=== PATIENT | male | born 1950 | race African-American/Black ===

== ENCOUNTER 2017-11-11 09:39 | Emergency (ER) | payer MEDICARE ==
[~2017-11-11] VITALS: Ht 170.2 cm; Wt 100.0 kg
[~2017-11-11 09:39] MED LIST: BL ADULT ASA81 MG OR; BP MEDICATION; CEPHALEXIN500 MG PO; CRESTOR5 MG OR; ERY-TAB333 MG OR; LISINOPRIL10 MG PO; LOPID600 MG OR; LORTAB 5 OR; NAPROSYN500 MG OR; PRAVASTATIN10 MG PO; TESSALON200 MG OR; TOPROL XL50 MG PO
[2017-11-11 10:15] LABS: HEMATOCRIT 46.5 % (39.0-50.0); HEMOGLOBIN 15.3 g/dl (14.0-18.0); IMMATURE GRANULOCYTES 0.3 % (0.0-1.0); MEAN CELL VOLUME 90.5 fL CALC (80.0-100.0); MEAN CORPUSCULAR HGB 29.8 pG CALC (26.0-32.0); MEAN CORPUSCULAR HGB CONC 32.9 g/L CALC (32.0-36.0); NEUT# 4.76 thou/uL (1.82-7.42); RED BLOOD COUNT 5.14 mill/uL (4.70-6.10); RED CELL DISTRI WIDTH 13.4 % (11.5-15.5)
[2017-11-11 10:44] LABS: ALBUMIN 3.8 g/dL (3.2-5.0); ALKALINE PHOSPHATASE 76 u/l (38-126); ANION GAP 13 (6-22 (CALC)); BILIRUBIN, TOTAL 0.6 mg/dL (0.0-1.4); BUN 11 mg/dL (8-23); BUN/CREATININE RATIO 12 (12-20 (CALC)); CALCIUM 9.6 mg/dL (8.4-10.2); CARBON DIOXIDE 28 mmol/l (22-30); CHLORIDE 105 mmol/l (95-108); GFR > 60 ML/MIN (>=60 (CALC)); GFR FOR AFR.AMER. > 60 ML/MIN (>=60 (CALC)); GLUCOSE 114 mg/dL (82-115); POTASSIUM 3.9 mmol/l (3.5-5.1); SGOT/AST 19 u/l (19-48); SGPT/ALT 25 u/l (11-66); SODIUM 143 mmol/l (137-146); TOTAL PROTEIN 6.8 g/dL (6.3-8.2)
[2017-11-11 12:08] LABS: URINE BILIRUBIN - DIPSTICK NEGATIVE (NEGATIVE); URINE BLOOD DIPSTICK NEGATIVE (NEGATIVE); URINE COLOR YELLOW; URINE GLUCOSE - DIPSTICK NEGATIVE (NEGATIVE); URINE KETONE NEGATIVE (NEGATIVE); URINE LEUK ESTERASE NEGATIVE (NEGATIVE); URINE NITRITE - DIPSTICK NEGATIVE (Negative); URINE PH 6.5 (4.5-8.0); URINE PROTEIN - DIPSTICK NEGATIVE (NEG-TRACE); URINE UROBILINOGEN - DIPSTICK 0.2 E.U./dL (0.2)
[2017-11-11 12:52] LABS: URINE CLARITY CLEAR
[2017-11-11 14:00] VITALS: BP 179/83
== END 2017-11-11 14:00 | disposition home or self-care (01) ==
LOC: ED 09:39
PROVIDERS: Emergency Medicine
DX: R11.2 Nausea with vomiting, unspecified (principal); R42 Dizziness and giddiness; R19.7 Diarrhea, unspecified; B34.9 Viral infection, unspecified

== ENCOUNTER 2017-12-17 01:41 | Observation (INO) | payer MEDICARE ==
[2017-12-17] VITALS (9 sets, daily range): BP systolic 137–183; BP diastolic 79–103
[~2017-12-17] VITALS: Ht 170.2 cm; Wt 80.4 kg
--- NOTE | 2017-12-17 01:43 | NUR ---
PATIENT BROUGHT IMMEDIATELY BACK TO TREATMENT AREA VIA WHEELCHAIR. PATIENT UNDRESSED INTO A GOWN. PLACED ON MONITOR. TRIAGE COMPLETED AT BEDSIDE. PATIENT AWAITIGN MD CARLISLE.
[2017-12-17] MEDS ORDERED: ULTRAM50 MG PO (02:04)
[2017-12-17] MEDS ORDERED: BREO ELLIPTA1 INH IN (02:04)
--- NOTE | 2017-12-17 02:06 | NUR ---
IV STARTED, LABS DRAWN, CONNECTED TO MONITOR, MD AT BEDSIDE, FAMILY AT BEDSIDE. Pt tolerated procedures well.
[2017-12-17 02:40] LABS: HEMATOCRIT 45.2 % (39.0-50.0); HEMOGLOBIN 15.1 g/dl (14.0-18.0); IMMATURE GRANULOCYTES 1.1 % (0.0-1.0); MEAN CELL VOLUME 90.4 fL CALC (80.0-100.0); MEAN CORPUSCULAR HGB 30.2 pG CALC (26.0-32.0); MEAN CORPUSCULAR HGB CONC 33.4 g/L CALC (32.0-36.0); NEUT# 4.66 thou/uL (1.82-7.42); RED CELL DISTRI WIDTH 13.8 % (11.5-15.5)
[2017-12-17 02:48] LABS: ALBUMIN 3.8 g/dL (3.2-5.0); ALKALINE PHOSPHATASE 88 u/l (38-126); ANION GAP 16 (6-22 (CALC)); BILIRUBIN, TOTAL 0.4 mg/dL (0.0-1.4); BUN 9 mg/dL (8-23); BUN/CREATININE RATIO 11 (12-20 (CALC)); CARBON DIOXIDE 27 mmol/l (22-30); CHLORIDE 104 mmol/l (95-108); CREATININE 0.9 mg/dL (0.7-1.3); GFR > 60 ML/MIN (>=60 (CALC)); GFR FOR AFR.AMER. > 60 ML/MIN (>=60 (CALC)); POTASSIUM 3.7 mmol/l (3.5-5.1); SGOT/AST 20 u/l (19-48); SGPT/ALT 27 u/l (11-66); SODIUM 143 mmol/l (137-146); TOTAL PROTEIN 6.6 g/dL (6.3-8.2)
[2017-12-17 03:00] LABS: MYOGLOBIN 18 ng/mL (0 - 121)
[2017-12-17 03:25] LABS: URINE BILIRUBIN - DIPSTICK NEGATIVE (NEGATIVE); URINE BLOOD DIPSTICK NEGATIVE (NEGATIVE); URINE COLOR YELLOW; URINE GLUCOSE - DIPSTICK NEGATIVE (NEGATIVE); URINE KETONE NEGATIVE (NEGATIVE); URINE LEUK ESTERASE NEGATIVE (NEGATIVE); URINE NITRITE - DIPSTICK NEGATIVE (Negative); URINE PROTEIN - DIPSTICK NEGATIVE (NEG-TRACE); URINE SPECIFIC GRAVITY <=1.005; URINE UROBILINOGEN - DIPSTICK 0.2 E.U./dL (0.2)
--- NOTE | 2017-12-17 03:26 | NUR ---
RESTING QUIETLY AWAITING DISPOSITION.
[2017-12-17 03:37] LABS: BARBITURATES NEGATIVE (NEGATIVE); COCAINE NEGATIVE (NEGATIVE); METHADONE NEGATIVE (NEGATIVE); OXCYCODONE NEGATIVE (NEGATIVE); TETRAHYDROCANNABIONOL NEGATIVE (NEGATIVE); TRICYLIC ANTIDEPRESSANTS NEGATIVE (NEGATIVE)
[2017-12-17 03:38] LABS: URINE CLARITY CLEAR
--- NOTE | 2017-12-17 05:43 | NUR ---
Admission Note Report Given to: COLTON ROQUE Transported by: Wheelchair X Stretcher Transported with: X Nurse Transporter X Patent IV [employer] Resource Officer
--- NOTE | 2017-12-17 05:45 | NUR ---
PT TRANSFERRED TO FLOOR VIA WC ACCOMPANIED BY ER STAFF AND SPOUSE;PT AMBULATED WITH A STEADY GAIT TO STANDING SCALE AND BEDSIDE;WT AND VS OBTAINED;PT ORIENTED TO ROOM AND CALL LIGHT SYSTEM;PT REPORTS HAVING A "BURNING SENSATION THROUGHOUT BODY" BUT DENIES ANY PAIN;PT REPORTS RELIEF SINCE ADMISSION;ASSESSMENT COMPLETED;RESPIRATIONS EVEN AND UNLABORED ON RA,CLEAR LUNG SOUNDS;ABDOMEN SOFT UPON PALPATION;WEAK PEDAL PULSES;PERRLA;#20G TO LAC FLUSHED AND PATENT;TELE MONITOR IN PLACE;LAST BM 12/17/17;SKIN INTAC;ALL SAFETY PRECAUTIONS REINFORCED;URINAL AT BEDSIDE;PT ENCOURAGED TO CALL FOR ASSISTANCE IF NEEDED;CALL LIGHT IN REACH;WILL CONTINUE TO MONITOR
--- NOTE | 2017-12-17 06:15 | NUR ---
MESSAGE LEFT FOR THAT PT HAS ARRIVED TO FLOOR
--- NOTE | 2017-12-17 07:14 | NUR ---
REPORT RECEIVED FROM NIKA ROQUE. PT SITTING ON SIDE OF BED. DENIES PAIN. NO DIZZINESS. AT BEDSIDE. FALL PRECAUTIONS REINFORCED. REPORTING OF CONCERNS ENCOURAGED. PLAN OF CARE DISCUSSED. CALL LIGHT REVIEWED AND IN REACH. PT STATES UNDERSTANDING.
--- NOTE | 2017-12-17 07:20 | NUR ---
ORTHOSTATIC BLOOD PRESSURE OBTAINED SUPINE: B/P-159/90; PULSE-65 SITTING: B/P-173/92; PULSE-68 STANDING: B/P-183/103; PULSE-70 ALL B/P TAKEN RIGHT ARM, PULSE OX PT HAS NO COMPLAINTS OF DIZZINESS OR PAIN
--- NOTE | 2017-12-17 08:30 | NUR ---
PT ALERT AND ORIENTED X3, INDEPENDENT IN ADLS. FACE SYMMETRICAL, SPEECH CLEAR, PUPILS EQUAL AND REACTIVE TO LIGHT. HEART SOUNDS STRONG AND REGULAR RHYTHM. LUNGS CLEAR, NO SIGNS OF RESP DISTRESS, 02 SAT 97% ON ROOM AIR, RESP EVEN AND UNLABORED. ABD SOFT, NON-DISTENDED, BOWEL SOUNDS X4. STRONG RADIAL AND PEDAL PULSES, BRISK CAP REFILLS. #20 GAUGE IV LAC, IV PATENT, FREE FROM REDNESS AND EDEMA. NO EDEMA LOWER EXTREMITIES. SKIN INTACT, WARM/DRY, NO REDNESS OR BREAKDOWN OBSERVED. PT HAS NO COMPLAINTS OF DIZZINESS OR PAIN AT THIS TIME, REMINDED TO CALL FOR HELP IF NEEDED, BED IN LOWEST POSITION, CALL LIGHT WITHIN REACH.
--- NOTE | 2017-12-17 09:00 | NUR ---
DR. REBOLLAR AT BEDSIDE.
[2017-12-17] MEDS ORDERED: ELIQUIS5 MG PO (09:55)
--- NOTE | 2017-12-17 10:41 | NUR ---
PT LEFT FLOOR VIA WHEELCHAIR TO US.
--- NOTE | 2017-12-17 13:00 | NUR ---
PT DENIES COMPLAINTS AT THIS TIME. CALL LIGHT WITHIN REACH.
--- NOTE | 2017-12-17 19:10 | NUR ---
REPORT RECEIVED FROM COLTON YEBOAH;PT RESTING AT BEDSIDE WITH PRESENT;INTRODUCED SELF TO PT AND POC DISCUSSED;TELE MONITOR IN PLACE;PT DENIES ANY PAIN OR DISCOMFORTS;ENCOURAGED TO CALL FOR ASSISTANCE IF NEEDED;CALL LIGHT IN REACH;WILL CONTINUE TO MONITOR
--- NOTE | 2017-12-17 20:20 | NUR ---
PT RESTING IN SEMI FOWLERS POSITION WITH VISITOR AT BEDSIDE;A&O X3;ASSESSMENT COMPLETED;STRONG PEDAL PULSES;RESPIRATIONS EVEN AND UNLABORED ON RA WITH CLEAR LUNG SOUNDS;ABDOMEN SOFT ON PALPATION AND ACTIVE IN ALL FOUR QUADS;TELE MONITOR IN PLACE;#20G TO LAC FLUSHED AND PATENT,SITE APPEARS HEALTHY AND FREE FROM EDEMA;PT DENIES ANY DIZZINESS OR PAIN;ENCOURAGED TO AMBULATE [place];FRESH WATER PROVIDED PER REQUEST;PT ENCOURAGED TO CALL FOR ASSISTANCE IF NEEDED;FALL PRECAUTIONS IN PLACE AND CALL LIGHT IN REACH;WILL CONTINUE TO MONICOT
--- NOTE | 2017-12-17 23:45 | NUR ---
PT APPEARS TO BE SLEEPING WITH EYES CLOSED;NO S/S OF DISTRESS NOTED;RESPIRATIONS EVEN AND UNLABORED ON RA;TELE MONITOR IN PLACE;FALL PRECAUTIONS;CALL LIGHT WITHIN REACH;WILL CONTINUE TO MONITOR
--- NOTE | 2017-12-18 00:30 | NUR ---
PT AMBULATED ALL 3 HALLWAYS WITH A STEADY GAIT
[2017-12-18 04:00] VITALS: BP 128/75
--- NOTE | 2017-12-18 04:00 | NUR ---
PT APPEARS TO BE SLEEPING IN SUPINE POSITIION;NO S/S OF DISTRESS NOTED;RESPIRATIONS EVEN AND UNLABORED ON RA;TELE MONITOR IN PLACE;FALL PRECAUTIONS;BED IN THE LOWEST POSITION WITH CALL LIGHT IN REACH;WILL CONTINUE TO MONITOR
[2017-12-18 06:10] LABS: HEMATOCRIT 45.6 % (39.0-50.0); HEMOGLOBIN 14.9 g/dl (14.0-18.0); IMMATURE GRANULOCYTES 0.8 % (0.0-1.0); MEAN CELL VOLUME 90.8 fL CALC (80.0-100.0); MEAN CORPUSCULAR HGB 29.7 pG CALC (26.0-32.0); MEAN CORPUSCULAR HGB CONC 32.7 g/L CALC (32.0-36.0); NEUT# 5.1 thou/uL (1.82-7.42); RED BLOOD COUNT 5.02 mill/uL (4.70-6.10); RED CELL DISTRI WIDTH 14.1 % (11.5-15.5)
[2017-12-18 06:17] LABS: ANION GAP 15 (6-22 (CALC)); BUN 9 mg/dL (8-23); BUN/CREATININE RATIO 10 (12-20 (CALC)); CARBON DIOXIDE 27 mmol/l (22-30); CHLORIDE 104 mmol/l (95-108); CREATININE 0.9 mg/dL (0.7-1.3); GFR > 60 ML/MIN (>=60 (CALC)); GFR FOR AFR.AMER. > 60 ML/MIN (>=60 (CALC)); POTASSIUM 4.2 mmol/l (3.5-5.1); SODIUM 142 mmol/l (137-146)
--- NOTE | 2017-12-18 07:17 | NUR ---
REPORT RECEIVED FROM NIKA ROQUE. PT SLEEPING AT THIS TIME, CALL LIGHT WITHIN REACH.
[2017-12-18 07:44] VITALS: BP 139/83
[2017-12-18 07:51] VITALS: BP 139/83
--- NOTE | 2017-12-18 09:47 | NUR ---
Discharge instructions given. Patient verbalizes understanding of same. Discharged in stable condition via Ambulatory to Home with spouse. All belongings sent with pt.
== END 2017-12-18 09:40 | disposition home or self-care (01) ==
LOC: ED 01:41 → ED-I 04:10 → ED 04:24 → MS2 04:25
PROVIDERS: Emergency Medicine; ADMIT Internal Medicine Geriatric Medicine; ATTEND Internal Medicine Geriatric Medicine
DX: R55 Syncope and collapse (principal); I10 Essential (primary) hypertension; I25.10 Atherosclerotic heart disease of native coronary artery without angina pectoris; M19.90 Unspecified osteoarthritis, unspecified site; G89.29 Other chronic pain; M54.5 Low back pain; R09.89 Other specified symptoms and signs involving the circulatory and respiratory systems; R25.2 Cramp and spasm; G81.90 Hemiplegia, unspecified affecting unspecified side; Z86.718 Personal history of other venous thrombosis and embolism

== ENCOUNTER → 2018-08-07 | Outpatient (REF) | payer MEDICARE ==
[~2018-08-07] MED LIST changes: +BREO ELLIPTA1 INH IN; +ELIQUIS5 MG PO; +ULTRAM50 MG PO
[2018-08-07 09:30] LABS: HEMATOCRIT 45.7 % (39.0-50.0); MEAN CELL VOLUME 91.6 fL CALC (80.0-100.0); MEAN CORPUSCULAR HGB 30.1 pG CALC (26.0-32.0); MEAN CORPUSCULAR HGB CONC 32.8 g/L CALC (32.0-36.0); NEUT# 2.62 thou/uL (1.82-7.42); RED BLOOD COUNT 4.99 mill/uL (4.70-6.10); RED CELL DISTRI WIDTH 13.8 % (11.5-15.5)
[2018-08-07 10:10] LABS: ALBUMIN 3.5 g/dL (3.2-5.0); ALKALINE PHOSPHATASE 66 u/l (38-126); ANION GAP 13 (6-22 (CALC)); BILIRUBIN, TOTAL 0.5 mg/dL (0.0-1.4); BUN 8 mg/dL (8-23); BUN/CREATININE RATIO 9 (12-20 (CALC)); CALCULATED LDLCHOLESTEROL 67 mg/dL (62-129 (CALC)); CARBON DIOXIDE 26 mmol/l (22-30); CHLORIDE 107 mmol/l (95-108); CHOLESTEROL HDL RATIO 4.7 (<4.4 (CALC)); CREATININE 0.9 mg/dL (0.7-1.3); GFR > 60 ML/MIN (>=60 (CALC)); GFR FOR AFR.AMER. > 60 ML/MIN (>=60 (CALC)); HDL CHOLESTEROL 29 mg/dL (>=40); POTASSIUM 3.9 mmol/l (3.5-5.1); SGOT/AST 20 u/l (19-48); SODIUM 142 mmol/l (137-146); TOTAL CHOLESTEROL 138 mg/dl (0-199); TOTAL PROTEIN 6.5 g/dL (6.3-8.2); TOTAL TRIGLYCERIDES 206 mg/dl (30-149); VLDL CHOLESTROL 41 mg/dl (0-38 (CALC))
[2018-08-07 10:31] LABS: TSH, 3RD GENERATION 2.17 uIU/mL (0.47 - 4.68)
== END | disposition home or self-care (01) ==
LOC: LAB 07:54
PROVIDERS: ATTEND Internal Medicine
DX: R73.9 Hyperglycemia, unspecified (principal); Z79.899 Other long term (current) drug therapy; E78.5 Hyperlipidemia, unspecified; E03.9 Hypothyroidism, unspecified; E55.9 Vitamin D deficiency, unspecified

== ENCOUNTER 2018-10-16 18:03 | Emergency (ER) | payer MEDICARE ==
[~2018-10-16] VITALS: Ht 170.2 cm; Wt 85.0 kg
[2018-10-16 19:43] VITALS: BP 148/89
== END 2018-10-16 19:43 | disposition home or self-care (01) ==
LOC: ED 18:03
DX: R09.89 Other specified symptoms and signs involving the circulatory and respiratory systems (principal)

== ENCOUNTER 2020-02-10 | Emergency (ER) | payer MEDICARE ==
[2020-02-10 13:51] LABS: HEMATOCRIT 48.3 % (39.0-50.0); HEMOGLOBIN 15.8 g/dl (14.0-18.0); IMMATURE GRANULOCYTES 0.3 % (0.0-5.0); MEAN CELL VOLUME 89.3 fL CALC (80.0-100.0); MEAN CORPUSCULAR HGB 29.2 pG CALC (26.0-32.0); MEAN CORPUSCULAR HGB CONC 32.7 g/dL CAL (32.0-36.0); NEUT# 7.39 thou/uL (1.82-7.42); RED BLOOD COUNT 5.41 mill/uL (4.70-6.10); RED CELL DISTRI WIDTH 13.9 % (11.5-15.5)
[2020-02-10 14:18] LABS: ALBUMIN 4.2 g/dL (3.2-5.0); ALKALINE PHOSPHATASE 73 u/l (38-126); ANION GAP 12 (6-22 (CALC)); BILIRUBIN, TOTAL 0.8 mg/dL (0.0-1.4); BUN 7 mg/dL (8-23); BUN/CREATININE RATIO 8 (12-20 (CALC)); CARBON DIOXIDE 27 mmol/l (22-30); CHLORIDE 103 mmol/l (95-108); CREATININE 0.9 mg/dL (0.7-1.3); GFR > 60 ML/MIN (>=60 (CALC)); GFR FOR AFR.AMER. > 60 ML/MIN (>=60 (CALC)); POTASSIUM 3.9 mmol/l (3.5-5.1); SGOT/AST 27 u/l (19-48); SODIUM 138 mmol/l (137-146); TOTAL PROTEIN 7.7 g/dL (6.3-8.2)
== END 2020-02-10 15:50 | disposition home or self-care (01) ==
DX: F41.9 Anxiety disorder, unspecified (principal); I10 Essential (primary) hypertension

== ENCOUNTER 2020-02-14 | Emergency (ER) | payer MEDICARE ==
[2020-02-14] MEDS ORDERED: ASPIRIN ADULT L81 M2 PO (16:10)
[2020-02-14 16:59] LABS: HEMATOCRIT 50.2 % (39.0-50.0); HEMOGLOBIN 16.1 g/dl (14.0-18.0); IMMATURE GRANULOCYTES 0.4 % (0.0-5.0); MEAN CELL VOLUME 90.1 fL CALC (80.0-100.0); MEAN CORPUSCULAR HGB 28.9 pG CALC (26.0-32.0); MEAN CORPUSCULAR HGB CONC 32.1 g/dL CAL (32.0-36.0); NEUT# 7.6 thou/uL (1.82-7.42); RED BLOOD COUNT 5.57 mill/uL (4.70-6.10); RED CELL DISTRI WIDTH 13.9 % (11.5-15.5)
[2020-02-14 17:00] LABS: URINE BILIRUBIN - DIPSTICK NEGATIVE (NEGATIVE); URINE BLOOD DIPSTICK TRACE-INTACT (NEGATIVE); URINE COLOR YELLOW; URINE GLUCOSE - DIPSTICK NEGATIVE (NEGATIVE); URINE KETONE NEGATIVE (NEGATIVE); URINE LEUK ESTERASE NEGATIVE (NEGATIVE); URINE NITRITE - DIPSTICK NEGATIVE (Negative); URINE PH 5.5 (4.5-8.0); URINE PROTEIN - DIPSTICK NEGATIVE (NEG-TRACE); URINE SPECIFIC GRAVITY >=1.030; URINE UROBILINOGEN - DIPSTICK 0.2 E.U./dL (0.2)
[2020-02-14 17:15] LABS: ALBUMIN 4.5 g/dL (3.2-5.0); ALKALINE PHOSPHATASE 78 u/l (38-126); ANION GAP 13 (6-22 (CALC)); BILIRUBIN, TOTAL 0.9 mg/dL (0.0-1.4); BUN 14 mg/dL (8-23); BUN/CREATININE RATIO 14 (12-20 (CALC)); CARBON DIOXIDE 28 mmol/l (22-30); CHLORIDE 101 mmol/l (95-108); GFR > 60 ML/MIN (>=60 (CALC)); GFR FOR AFR.AMER. > 60 ML/MIN (>=60 (CALC)); LIPASE 66 u/l (23-300); POTASSIUM 4.5 mmol/l (3.5-5.1); SGOT/AST 30 u/l (19-48); SODIUM 138 mmol/l (137-146)
[2020-02-14] MEDS ORDERED: CYCLOBENZAPRINE5 MG PO (17:32)
== END 2020-02-14 18:25 | disposition home or self-care (01) ==
PROVIDERS: Family Medicine
DX: R10.31 Right lower quadrant pain (principal); I10 Essential (primary) hypertension; Z87.442 Personal history of urinary calculi

== ENCOUNTER 2020-02-15 | Emergency (ER) | payer MEDICARE ==
[~2020-02-15] MED LIST changes: +ASPIRIN ADULT L81 M2 PO; +CYCLOBENZAPRINE5 MG PO
[2020-02-15 15:01] LABS: HEMATOCRIT 46.3 % (39.0-50.0); HEMOGLOBIN 15.1 g/dl (14.0-18.0); IMMATURE GRANULOCYTES 0.2 % (0.0-5.0); MEAN CELL VOLUME 90.1 fL CALC (80.0-100.0); MEAN CORPUSCULAR HGB 29.4 pG CALC (26.0-32.0); MEAN CORPUSCULAR HGB CONC 32.6 g/dL CAL (32.0-36.0); NEUT# 5.25 thou/uL (1.82-7.42); RED BLOOD COUNT 5.14 mill/uL (4.70-6.10); RED CELL DISTRI WIDTH 13.8 % (11.5-15.5)
[2020-02-15 15:03] LABS: URINE BILIRUBIN - DIPSTICK NEGATIVE (NEGATIVE); URINE BLOOD DIPSTICK TRACE-INTACT (NEGATIVE); URINE COLOR YELLOW; URINE GLUCOSE - DIPSTICK NEGATIVE (NEGATIVE); URINE KETONE NEGATIVE (NEGATIVE); URINE LEUK ESTERASE NEGATIVE (NEGATIVE); URINE NITRITE - DIPSTICK NEGATIVE (Negative); URINE PH 5.5 (4.5-8.0); URINE PROTEIN - DIPSTICK NEGATIVE (NEG-TRACE); URINE SPECIFIC GRAVITY 1.025; URINE UROBILINOGEN - DIPSTICK 0.2 E.U./dL (0.2)
[2020-02-15 15:14] LABS: ALBUMIN 3.9 g/dL (3.2-5.0); ALKALINE PHOSPHATASE 68 u/l (38-126); ANION GAP 11 (6-22 (CALC)); BILIRUBIN, TOTAL 1.1 mg/dL (0.0-1.4); BUN 12 mg/dL (8-23); BUN/CREATININE RATIO 13 (12-20 (CALC)); CARBON DIOXIDE 28 mmol/l (22-30); CHLORIDE 105 mmol/l (95-108); CREATININE 0.9 mg/dL (0.7-1.3); GFR > 60 ML/MIN (>=60 (CALC)); GFR FOR AFR.AMER. > 60 ML/MIN (>=60 (CALC)); LIPASE 68 u/l (23-300); POTASSIUM 4.1 mmol/l (3.5-5.1); SGOT/AST 24 u/l (19-48); SODIUM 140 mmol/l (137-146); TOTAL PROTEIN 7.1 g/dL (6.3-8.2)
== END 2020-02-15 16:15 | disposition home or self-care (01) ==
PROVIDERS: Family Medicine
DX: R10.84 Generalized abdominal pain (principal); I10 Essential (primary) hypertension; Z87.442 Personal history of urinary calculi; Z85.46 Personal history of malignant neoplasm of prostate; Z85.51 Personal history of malignant neoplasm of bladder

== ENCOUNTER 2020-11-30 00:39 | Emergency (ER) | payer MEDICARE ==
[~2020-11-30] VITALS: Ht 170.2 cm; Wt 85.0 kg
[2020-11-30 01:40] LABS: HEMATOCRIT 47.1 % (39.0-50.0); HEMOGLOBIN 14.7 g/dl (14.0-18.0); IMMATURE GRANULOCYTES 0.4 % (0.0-5.0); MEAN CELL VOLUME 91.6 fL CALC (80.0-100.0); MEAN CORPUSCULAR HGB 28.6 pG CALC (26.0-32.0); MEAN CORPUSCULAR HGB CONC 31.2 g/dL CAL (32.0-36.0); NEUT# 4.71 thou/uL (1.82-7.42); RED BLOOD COUNT 5.14 mill/uL (4.70-6.10); RED CELL DISTRI WIDTH 13.8 % (11.5-15.5)
[2020-11-30 01:57] LABS: ALBUMIN 3.7 g/dL (3.2-5.0); ALKALINE PHOSPHATASE 64 u/l (38-126); AMYLASE 74 u/l (30-110); ANION GAP 10 (6-22 (CALC)); BILIRUBIN, TOTAL 0.7 mg/dL (0.0-1.4); BUN 11 mg/dL (8-23); BUN/CREATININE RATIO 12 (12-20 (CALC)); CARBON DIOXIDE 27 mmol/l (22-30); CHLORIDE 104 mmol/l (95-108); CREATININE 0.9 mg/dL (0.7-1.3); GFR > 60 ML/MIN (>=60 (CALC)); GFR FOR AFR.AMER. > 60 ML/MIN (>=60 (CALC)); LIPASE 85 u/l (23-300); POTASSIUM 3.7 mmol/l (3.5-5.1); SGOT/AST 22 u/l (19-48); SODIUM 137 mmol/l (137-146); TOTAL PROTEIN 6.7 g/dL (6.3-8.2)
[2020-11-30 02:09] LABS: MYOGLOBIN 45 ng/mL (0 - 121)
[2020-11-30 02:30] VITALS: BP 122/68
== END 2020-11-30 02:30 | disposition home or self-care (01) ==
LOC: ED 00:39
PROVIDERS: Family Medicine
DX: R07.89 Other chest pain (principal); J02.9 Acute pharyngitis, unspecified; R05 Cough; I10 Essential (primary) hypertension; Z86.718 Personal history of other venous thrombosis and embolism; Z86.711 Personal history of pulmonary embolism; Z85.46 Personal history of malignant neoplasm of prostate; Z87.442 Personal history of urinary calculi; Z85.51 Personal history of malignant neoplasm of bladder; Z20.822 Contact with and (suspected) exposure to COVID-19

== ENCOUNTER 2023-11-11 04:40 | Emergency (ER) | payer MEDICARE ==
[~2023-11-11] VITALS: Ht 170.2 cm; Wt 83.0 kg
[~2023-11-11 04:40] MED LIST changes: +LOSARTAN POTASS50 MG PO; +NAPROXEN500 MG PO; +ROSUVASTATIN CAL5 MG PO; +TOPROL XL25 MG PO
[2023-11-11 04:46] VITALS: BP 169/91
[2023-11-11 05:01] VITALS: BP 147/82
[2023-11-11] MEDS ORDERED: VITAMIN D-32000 UNI1 (05:13)
[2023-11-11] MEDS ORDERED: [UNRECOGNIZED DRUG - OTHER] (05:13)
[2023-11-11] MEDS ORDERED: TRAMADOL HCL50 MG PO (06:22)
[2023-11-11] MEDS ORDERED: STERAPRED DS10 MG PO (06:22)
[2023-11-11 06:38] VITALS: BP 147/82
== END 2023-11-11 06:39 | disposition home or self-care (01) ==
LOC: ED 04:40
DX: M47.22 Other spondylosis with radiculopathy, cervical region (principal); I10 Essential (primary) hypertension; Z86.718 Personal history of other venous thrombosis and embolism; Z86.711 Personal history of pulmonary embolism; Z85.46 Personal history of malignant neoplasm of prostate; Z85.51 Personal history of malignant neoplasm of bladder; Z20.822 Contact with and (suspected) exposure to COVID-19

== ENCOUNTER 2024-07-29 07:01 | Emergency (ER) | payer MEDICARE ==
[~2024-07-29] VITALS: Ht 170.2 cm; Wt 86.0 kg
[2024-07-29] VITALS (7 sets, daily range): BP systolic 153–180; BP diastolic 78–90
[~2024-07-29 07:01] MED LIST changes: +STERAPRED DS10 MG PO; +TRAMADOL HCL50 MG PO; +VITAMIN D-32000 UNI1; +[UNRECOGNIZED DRUG - OTHER]
[2024-07-29] MEDS ORDERED: ONDANSETRON 4 MG/TAB ODT PO ONE (07:20)
[2024-07-29] MEDS ORDERED: MORPHINE SULFATE 4 MG/ML VIAL IM ONE (07:20)
[2024-07-29] MEDS ORDERED: TRAMADOL HYDROC50 M1 PO (08:14)
[2024-07-29] MEDS ORDERED: NAPROXEN500 MG PO (08:14)
== END 2024-07-29 08:21 | disposition home or self-care (01) ==
LOC: ED 07:01
DX: M54.50 Low back pain, unspecified (principal); I10 Essential (primary) hypertension; M50.91 Cervical disc disorder, unspecified, high cervical region; M51.9 Unspecified thoracic, thoracolumbar and lumbosacral intervertebral disc disorder; Z85.46 Personal history of malignant neoplasm of prostate; Z86.718 Personal history of other venous thrombosis and embolism; Z86.711 Personal history of pulmonary embolism; Z85.51 Personal history of malignant neoplasm of bladder; Z87.442 Personal history of urinary calculi